=== PATIENT | male | born 1955 | race Caucasian/White ===

== ENCOUNTER 2019-01-28 08:59 | Outpatient (RCR) | payer OTHER, SELFPAY | END 2019-02-05 23:59 | LOC: NS 08:59 | PROVIDERS: Family Provider Family Medicine; PCP Family Medicine; Visit Provider Family Medicine | DX: E66.9 Obesity, unspecified (principal); Z71.3 Dietary counseling and surveillance | CPT/HCPCS: 97802 ==

== ENCOUNTER 2019-02-25 08:30 | Outpatient (RCR) | payer OTHER, SELFPAY ==
[2017-03-08 15:40] VITALS: BMI 33.0
== END 2019-03-08 23:59 ==
LOC: NS 08:30
PROVIDERS: Family Provider Family Medicine; PCP Family Medicine; Visit Provider Family Medicine
DX: E66.9 Obesity, unspecified (principal); Z71.3 Dietary counseling and surveillance
CPT/HCPCS: 97803

== ENCOUNTER 2019-04-01 08:30 | Outpatient (RCR) | payer OTHER, SELFPAY ==
[2017-03-08 15:40] VITALS: BMI 33.0
== END 2019-04-07 23:59 ==
LOC: NS 08:30
PROVIDERS: Family Provider Family Medicine; PCP Family Medicine; Visit Provider Family Medicine
DX: E66.9 Obesity, unspecified (principal); Z71.3 Dietary counseling and surveillance
CPT/HCPCS: 97803

== ENCOUNTER 2019-04-28 08:30 | Outpatient (RCR) | payer OTHER, SELFPAY ==
[2017-03-08 15:40] VITALS: BMI 33.0
== END 2019-05-08 23:59 ==
LOC: NS 08:30
PROVIDERS: Family Provider Family Medicine; PCP Family Medicine; Visit Provider Family Medicine
DX: E66.9 Obesity, unspecified (principal); Z71.3 Dietary counseling and surveillance
CPT/HCPCS: 97803

== ENCOUNTER 2019-06-03 08:30 | Outpatient (RCR) | payer OTHER, SELFPAY ==
[2017-03-08 15:40] VITALS: BMI 33.0
== END 2019-06-07 23:59 ==
LOC: NS 08:30
PROVIDERS: Family Provider Family Medicine; PCP Family Medicine; Visit Provider Family Medicine
DX: Z71.3 Dietary counseling and surveillance (principal); E66.9 Obesity, unspecified
CPT/HCPCS: 97803

== ENCOUNTER 2019-07-07 08:20 | Outpatient (RCR) | payer OTHER, SELFPAY ==
[2017-03-08 15:40] VITALS: BMI 33.0
== END 2019-07-08 23:59 ==
LOC: NS 08:20
PROVIDERS: Family Provider Family Medicine; PCP Family Medicine; Visit Provider Family Medicine
DX: Z71.3 Dietary counseling and surveillance (principal); E66.9 Obesity, unspecified
CPT/HCPCS: 97803

== ENCOUNTER 2019-07-21 08:54 | Outpatient (RCR) | payer OTHER, SELFPAY ==
[2017-03-08 15:40] VITALS: BMI 33.0
== END 2019-07-21 17:26 | disposition home or self-care (01) ==
LOC: NS 08:54
PROVIDERS: Family Provider Family Medicine; PCP Family Medicine; Visit Provider Family Medicine
DX: Z71.3 Dietary counseling and surveillance (principal); E66.9 Obesity, unspecified
CPT/HCPCS: 97803

== ENCOUNTER 2021-02-20 12:29 | Emergency (ER) | payer MEDICARE, OTHER, SELFPAY ==
[2021-02-20 12:30] VITALS: BP 135/68; PULSE 56; RESP 16; TEMP 36.6; O2SAT 99; BMI 29.9
[2021-02-20] MEDS: HYDROcodone Bitartrate/Apap 5/325 Tablet PO (13:02)
--- NOTE | 2021-02-20 13:10 | RAD_ITS ---
STUDY: X-RAY - RIGHT KNEE REASON FOR EXAM: Male, 65 years old. pain TECHNIQUE: 3 view(s) of the knee. COMPARISON: None. FINDINGS: Normal visualized distal femur. Normal visualized proximal tibia and fibula. Normal proximal tibiofibular articulation. There is mild degenerative arthrosis of the medial femorotibial compartment. Normal lateral femorotibial compartment. There is mild degenerative arthrosis of the patellofemoral articulation. 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 The soft tissue structures are unremarkable. RAD/Knee 3 Views IMPRESSION: 1. No acute fracture or dislocation. 2. CPPD with mild arthrosis. Electronically Signed: Christoph Ellsworth MD at 13:30 EDT Tel , Service support ,
--- NOTE | 2021-02-20 14:31 | ED.VIS.LOWEX ---
HPI History of Present Illness HPI Narrative: Patient is a 65-year-old male who states about 1 week ago he was walking when he felt and heard a pop in his right knee. He states it felt better after 2 or 3 days. He reports he was mowing the yard yesterday and does not remember a specific trauma but reports after the event has noticed pain in his right knee. Secondary to this he presents for evaluation. He denies any recent travel surgery or history of DVT/PE. Chief Complaint: Lower Extremity Injury PFSH PFSH Home Medications omeprazole magnesium [Prilosec Otc] 20 mg PO PRN PRN 03/07/17 [History Last Taken 03/06/17] simvastatin [Zocor] 40 mg PO QHS 03/07/17 [History Last Taken 03/06/17] cinacalcet 30 mg PO DAILY 02/20/21 [History Last Taken Unknown] hydrocodone-acetaminophen 1 tab PO Q6H PRN 3 Days #12 tab 02/20/21 [Rx Last Taken Unknown] irbesartan 75 mg PO DAILY 02/20/21 [History Last Taken Unknown] prednisone 40 mg PO DAILY 5 Days #10 tab 02/20/21 [Rx Last Taken Unknown] Allergy/AdvReac Type Severity Reaction Status Date / Time No Known Allergies Allergy Verified 02/20/21 12:30 Social History Smoking Status: Former smoker ROS ROS ED Constitutional Constitutional ED: Denies chills or fever(s) ENT ENT ED: Denies sore throat Cardiovascular Cardiovascular: Denies chest pain Respiratory/Chest Respiratory/Chest: Denies cough Gastrointestinal Gastrointestinal: Denies nausea or vomiting Musculoskeletal Musculoskeletal: Reports other Details: Positive right knee pain Integumentary Denies Abrasions Neurologic Neurologic: Denies headache(s) or weakness Hematologic/Lymphatic Hematologic/Lymphatic: Denies easy bleeding or easy bruising EXAM Physical Exam Const Vital Signs: 02/20/21 12:30 Temperature 97.8 F Temperature Source Temporal Pulse Rate 56 L Respiratory Rate 16 Blood Pressure 135/68 H Blood Pressure Mean 90 Pulse Ox 99 Oxygen Delivery Method Room Air Positive well nourished and well developed General Appearance ED: well developed HEENT normocephalic and atraumatic Eyes PERRL Neck full ROM Chest Wall inspection of chest normal Resp normal respiratory effort and clear to auscultation bilaterally Cardio regular rate, regular rhythm and no murmurs Extremity Extremity Narrative: Right lower extremity is neurovascularly intact. Patient has mild soft tissue swelling along the medial aspect of the right knee. There is pain on palpation at the site. Patellar tendon is intact knee ligaments are stable. No asymmetric edema no pitting edema negative Homans' sign bilaterally Neuro oriented x3 and CN's II-XII intact bilaterally Sensorium / Orientation: alert and oriented to person Psych mental status grossly normal Skin no wounds Lesions: no lesions Rashes: no rashes MDM MDM MDM Narrative Medical decision making narrative: Patient presented to the ER with right knee pain. On exam there is mild soft tissue swelling and as he reported a pop before the initial onset of pain I did elect to perform x-rays. X-rays revealed degeneration consistent with arthritis but otherwise no acute finding. As patient does not have any ligamentous instability or signs of infection or DVT I do not feel there is need for further work-up and his history and exam is most consistent with knee sprain and arthritis and therefore he'll be discharged home with symptomatic medication. Radiography Diagnostic Testing: Radiology Impression Knee X-Ray 02/20/21 13:10 IMPRESSION: 1. No acute fracture or dislocation. 2. CPPD with mild arthrosis. Electronically Signed: Christoph Ellsworth MD at 13:30 EDT Tel , Service support , Discharge Plan Triage Chief Complaint: Lower Extremity Injury ED Provider: Eliseo Chu Dx/Rx/DC Orders Clinical Impression: Right knee sprain, Osteoarthritis Instructions: Arthritis: Exercise, ED Knee Sprain Prescriptions: New prednisone 20 mg tablet 40 mg PO DAILY 5 Days Qty: 10 RF: 0 hydrocodone-acetaminophen 5-325 mg tablet 1 tab PO Q6H PRN (Reason: pain) 3 Days Qty: 12 RF: 0 No Action simvastatin [Zocor] 40 MG tablet 40 mg PO QHS RF: 0 omeprazole magnesium [Prilosec OTC] 20 MG tablet,delayed release (DR/EC) 20 mg PO PRN PRN (Reason: Indigestion) RF: 0 cinacalcet 30 mg tablet 30 mg PO DAILY RF: 0 irbesartan 75 mg tablet 75 mg PO DAILY RF: 0 Primary Care Provider: Miko Velez Referrals: Miko Velez DO [Primary Care Provider] - Disposition Disposition: Home, Self Care
[2021-02-20 14:48] VITALS: BP 115/75; RESP 16
== END 2021-02-20 14:49 | disposition home or self-care (01) ==
PROVIDERS: Emergency Provider Emergency Medicine; PCP Family Medicine
DX: M17.11 Unilateral primary osteoarthritis, right knee (principal); S83.91XA Sprain of unspecified site of right knee, initial encounter; Z87.891 Personal history of nicotine dependence; Y93.01 Activity, walking, marching and hiking; Y93.89 Activity, other specified; Y92.007 Garden or yard of unspecified non-institutional (private) residence as the place of occurrence of the external cause; Y99.8 Other external cause status
CPT/HCPCS: 73562; 99283

== ENCOUNTER 2022-03-09 03:59 | Emergency (ER) | payer MEDICARE, OTHER, SELFPAY ==
[2022-03-09 04:02] VITALS: BP 156/74; PULSE 55; RESP 18; TEMP 36.4; O2SAT 97; BMI 35.1
--- NOTE | 2022-03-09 04:03 | EX.ED.UPPERE ---
HPI History of Present Illness Chief Complaint: Upper Extremity Injury Narrative Narrative: 66-year-old male here for extremity injury. History of GERD, hyperlipidemia. The patient s feels he notes for the past 4 days he has had bruising in the left upper extremity with mild pain. Denies any recent trauma but does note he was moving some objects over the past weekend which could have precipitated him hurting his left bicep. Denies any history of DVT. Patient denies active cancer, being bedridden for greater than 3 days, denies unilateral leg swelling, denies any varicose veins, denies any calf tenderness, denies any edema. Denies major surgery within 12 weeks, recent paralysis, previous DVT. No fevers or chills. No numbness or tingling. Old chart reviewed: No recent advanced imaging of the involved extremity [facility] Medical History (Updated 03/09/22 @ 04:[address] Mario Alberto Gore, DO) History of lung cancer Hypertension Home Medications omeprazole magnesium 20 mg tablet,delayed release (Prilosec OTC) 20 mg PO PRN PRN Indigestion 03/07/17 [History Last Taken 03/06/17] simvastatin 40 mg tablet (Zocor) 40 mg PO QHS 03/07/17 [History Last Taken 03/06/17] cinacalcet 30 mg tablet 30 mg PO DAILY 02/20/21 [History Last Taken Unknown] irbesartan 75 mg tablet 75 mg PO DAILY 02/20/21 [History Last Taken Unknown] Allergy/AdvReac Type Severity Reaction Status Date / Time lactase Allergy Vomiting Verified 03/09/22 04:00 Social History Smoking Status: Former smoker ROS [facility] ED Constitutional Constitutional ED: Denies chills or fever(s) Eyes Eyes: Denies other visual disturbances ENT ENT ED: Denies ear pain Cardiovascular Cardiovascular: Denies chest pain Respiratory/Chest Respiratory/Chest: Denies dyspnea Gastrointestinal Gastrointestinal: Denies abdominal pain Genitourinary Genitourinary ED: Denies dysuria Musculoskeletal Musculoskeletal: Reports myalgias Integumentary Reports other Details: Bruising noted over the left upper extremity Neurologic Neurologic: Denies dizziness, focal weakness, numbness, syncope or weakness Psychiatric Psychiatric: Denies homicidal ideation or suicidal ideation EXAM Physical Exam Narrative Exam Narrative: Nursing triage notes reviewed, Vital signs reviewed Constitutional: please see mdm Neck: No stridor, no JVD, full neck ROM Lungs: Clear to auscultation, No wheezing or rales. No increased work of breathing, no conversational dyspnea, no accessory muscle use, no nasal flaring. No respiratory distress noted Heart: Regular rate and rhythm, No murmurs, No rubs and No gallops, 2+ distal pulses (radial, femoral, posterior tibial) in all extremities Extremities: No edema, no tenderness over the biceps venous structures. Intact rotator cuff complex, 5/5 strength in left upper extremity elbow flexion, extension. Wrist pronation supination. Neuro: Intact 5/5 strength with ok sign (median), intact finger abduction (ulnar) intact wrist extension (radial n). Intact sensation in the radial, ulnar, and median nerve distributions. Skin: Ecchymosis noted over the left upper arm tracking into the medial proximal forearm. No signs of cellulitic changes, no crepitus, fluctuance, induration noted. No obvious skin abrasions lacerations or other trauma noted. MDM MDM MDM Narrative Medical decision making narrative: 66-year-old male here with atraumatic left upper arm discoloration and slight pain. He was hemodynamically stable, afebrile, nontoxic-appearing. He had no DVT risk factors. Low suspicion for DVT at this time. Patient had symmetric pulses in all upper extremities. Likely ecchymosis from muscle strain or other musculoskeletal cause. Low suspicion for life or limb threatening etiology at this time. Gave strict return precautions and follow-up instructions. Shared decision making: I had a long discussion with the patient and or visitors regarding risk/benefits of further testing or admission. They decided to forego any further testing or admission. They are aware of of the risk/benefits inherent in this decision and have voiced understanding. Discharge Plan Triage Chief Complaint: Upper Extremity Injury ED Provider: Mario Alberto Gore Dx/Rx/DC Orders Clinical Impression: Abnormal bruising Prescriptions: No Action simvastatin [Zocor] 40 MG tablet 40 mg PO QHS Label Comments: cholesterol omeprazole magnesium [Prilosec OTC] 20 MG tablet,delayed release (DR/EC) 20 mg PO PRN PRN (Reason: Indigestion) Label Comments: acid reflux cinacalcet 30 mg tablet 30 mg PO DAILY Label Comments: TAKE 1 TABLET BY MOUTH DAILY irbesartan 75 mg tablet 75 mg PO DAILY Label Comments: TAKE 1 TABLET BY MOUTH ONCE DAILY Primary Care Provider: Miko Velez Referrals: Miko Velez DO [Primary Care Provider] - Activity Restrictions/Additional Instructions: Please continue to monitor your skin discoloration at home. If your discoloration worsens, develop increasing pain, increasing swelling of left upper extremity, chest pain or shortness of breath please return to emergency department immediately. Please follow-up with your primary care physician within the next week for re-evaluation. Disposition Disposition: Home, Self Care
== END 2022-03-09 04:41 | disposition home or self-care (01) ==
PROVIDERS: Emergency Provider Emergency Medicine; PCP Family Medicine; Visit Provider Emergency Medicine
DX: M79.622 Pain in left upper arm (principal); I10 Essential (primary) hypertension; E78.5 Hyperlipidemia, unspecified; Z79.899 Other long term (current) drug therapy; Z87.891 Personal history of nicotine dependence
CPT/HCPCS: 99282

== ENCOUNTER → 2022-11-08 | Outpatient (CLI) | payer MEDICARE, OTHER, SELFPAY ==
--- NOTE | 2022-11-08 06:52 | CT_ITS ---
STUDY: CT MAXILLOFACIAL SINUSES REASON FOR EXAM: Male, 66 years old. CHRONIC SINUSITIS WITH POLYPOSIS RADIATION DOSAGE (If Supplied By Facility): CTDIvol = ( 33.06 ) mGy, DLP = ( 813.19 ) mGycm TECHNIQUE: The patient was scanned in a multi detector CT scanner. High resolution axial imaging was performed without the administration of intravenous contrast material. Sagittal and coronal images were reconstructed. Individualized dose optimization techniques were used for this CT. COMPARISON: None. FINDINGS: FRONTAL SINUSES: Opacification of the frontal sinuses worse on the right side. ETHMOIDAL SINUSES: Opacification of the ethmoid sinuses with thinning of the bony septations. MAXILLARY SINUSES: Mucosal thickening about the maxillary sinuses bilaterally. SPHENOIDAL SINUSES: Opacification of the sphenoid sinuses. Compromise of the ostiomeatal complexes of the maxillary sinuses bilaterally worse on the right side due to mucosal hypertrophy. Normal bilateral middle turbinates. Normal bilateral inferior turbinates. Normal midline nasal septum. Soft tissue densities in the nasal airways are prominent on the right side suggestive of polyposis. The visualized osseous structures are normal. The visualized bilateral orbital contents are normal. CT/Sinus/Facial Bone IMPRESSION: Pansinusitis. Nasal polyposis is worse in the right nasal airway. Electronically Signed: Kam Hyman MD at 15:10 EDT ,
== END | disposition home or self-care (01) ==
LOC: CT 06:49
PROVIDERS: PCP Family Medicine; Referring Provider Otolaryngology; Visit Provider Otolaryngology
DX: J32.9 Chronic sinusitis, unspecified (principal)
CPT/HCPCS: 70486

== ENCOUNTER 2023-04-23 08:37 | Day surgery (SDC) | payer MEDICARE, OTHER, SELFPAY ==
--- NOTE | 2023-04-18 09:15 | EKG12_ITS ---
Test Reason : PREOP Blood Pressure : / mmHG Vent. Rate : 072 BPM Atrial Rate : 072 BPM P-R Int : 152 ms QRS Dur : 088 ms QT Int : 368 ms P-R-T Axes : 017 -53 052 degrees QTc Int : 402 ms Normal sinus rhythm Left anterior fascicular block Abnormal ECG Confirmed by GREGORIO PALM, EMELYN ([id number]), online content editor SIRENA VENTURA ([id number]) on 04/19/2023 6:44:31 AM Referred By: Mansoor Walton Confirmed By:EMELYN PERKINS MD
[2023-04-18 09:40] LABS: Hematocrit 47.9 % (40-54); Hemoglobin 14.8 g/dL (13.0-16.5); Mean Corp Hgb Conc 30.9 g/dL (32-36); Mean Corpuscular Hgb 27.7 pg (27.0-32.0); Mean Corpuscular Volume 89.7 fL (80-94); Mean Platelet Vol. 8.7 fl (6.2-12.0); Platelet Count 242 K/mm3 (150-450); RBC Distribution Width SD 42.6 fl (35.1-43.9); Red Blood Count 5.34 M/mm3 (4.6-6.2); White Blood Count 8.2 K/mm3 (4.4-11.0)
[2023-04-18 10:02] LABS: Anion Gap 3 (5-15); BUN 18 mg/dL (7-18); BUN/Creat Ratio 13.2 RATIO (10-20); Chloride 107 mmol/L (98-107); Creatinine, Serum 1.36 mg/dL (0.70-1.30); EST Glomerular Filtration Rate 55 mL/min (>60); Est Glom Filt Rate - Afr Amer 67 mL/min (>60); Glucose 102 mg/dL (74-106); Sodium Level 139 mmol/L (136-145)
[2023-04-23] VITALS (7 sets, daily range): BP systolic 134–163; BP diastolic 73–93; PULSE 55–75; RESP 16–18; TEMP 36.6–37; O2SAT 92–98; BMI 36.6
--- NOTE | 2023-04-23 | ETH_PTH ---
PATIENT: DEBORAH MENDOZA LOC: [facility] [place] U#:[id number] AGE/SX: 67/M ROOM: RE04/23/[address]: Dr. Mansoor Walton MD : 1955 BED: DIS: 04/23/2023 SPEC #: [id number] RECD: 04/23/23 12:50 STATUS: HOLLY TIAN #: [id number] JONATHAN: 04/23/23 00:[address]: Mansoor Walton DEPT: SURGICAL PATHOLOGY RECD BY: Jermaine Armstrong ENTERED: 04/23/23 13:23 SP TYPE: ETH TISS OTHR DR: Dr. Miko Velez DO Tissues: A - Ethmoid sinus, NOS B - Ethmoid sinus, NOS C - Nasal septum, NOS Procedures: Decalcification bone/plaque Surgery Specimen Level III Surgery Specimen Level IV HEADER OPERATION: Septoplasty, functional endoscopic surgery with Navigation PRE-OP DIAGNOSIS: Anosmia, polyp of nasal cavity, chronic sinusitis, deviated nasal septum TISSUE SUBMITTED: A - Left sinus contents, B - Right sinus contents, C - Nasal septum MICROSCOPIC DIAGNOSIS A. Left sinus contents: Fragments of respiratory mucosa with chronic inflammation and bone. B. Right sinus contents: Fragments of respiratory mucosa with chronic inflammation and bone. C. Nasal septum: Fragments of bone and cartilage, clinically deviated nasal septum. AM:kimberly 04/26/2023 MICROSCOPIC DESCRIPTION Slides are reviewed. GROSS DESCRIPTION A - Received in fixative is one container labeled with the patient's name and designated left sinus contents. The specimen consists of multiple irregular fragments of hemorrhagic soft tissue mixed with possible fragments of bone that in aggregate measure 4.0 x 3.0 x 0.3 cm. The entire specimen is submitted in two cassettes after decalcification. B - Received in fixative is one container labeled with the patient's name and designated right sinus contents. The specimen consists of multiple irregular fragments of pink soft tissue mixed with possible fragments of bone that in aggregate measure 5.0 x 3.0 x 0.3 cm. The entire specimen is submitted in two cassettes after decalcification. C - Received in fixative is one container labeled with the patient's name and designated nasal septum. The specimen consists of multiple irregular fragments of cartilage and bone that in aggregate measure 5.0 x 3.0 x 0.3 cm. The entire specimen is submitted in two cassettes after decalcification. / ROSIE:kimberly 04/23/2023 TC:3 CPT: 72809 x2, 95081, 76877 x3
[2023-04-23] MEDS: Lactated Ringers 1,000 ML 15 ML IV (09:02)
[2023-04-23] MEDS: Oxymetazoline 0.05% 1 SPRAY SPRAY.BTL NASAL (09:08)
--- NOTE | 2023-04-23 10:08 | PCM.DC.SUM ---
Providers Primary Care Physician: Dr. Miko Velez DO Reason For Visit: Septoplasty, Functional Endoscopic Medications at Discharge Home Medications omeprazole magnesium 20 mg tablet,delayed release (Prilosec OTC) 20 mg PO PRN PRN Indigestion 03/07/17 simvastatin 40 mg tablet (Zocor) 40 mg PO QHS 03/07/17 cinacalcet 30 mg tablet 30 mg PO DAILY 02/20/21 irbesartan 75 mg tablet 75 mg PO DAILY 02/20/21 cholecalciferol (vitamin D3) 25 mcg (1,000 unit) capsule (Vitamin D3) 25 mcg PO DAILY 04/12/23 tamsulosin 0.4 mg capsule 0.4 mg PO DAILY 04/12/23 Weight / BMI Weight Weight: 99.7 kg Body Mass Index (BMI) 36.6 ABG / Lab / Microbiology Data 04/18/23 09:29 04/18/23 09:29 D/C Instructions Discharge Diet: No restrictions Additional Activity Instructions: NO nose blowing Additional Instructions: Start saline irrigation tomorrow. Irrigate 4x/day Please Follow Up With: Mansoor Walton MD When: next week Meaningful Use Info Meaningful Use Diagnoses (Choose all that apply): None applicable Discharge Plan Admission Attending Provider: Mansoor Walton Primary Care Provider: Miko Velez Discharge Orders/Prescriptions Prescriptions: No Action simvastatin [Zocor] 40 MG tablet 40 mg PO QHS Patient Comments: cholesterol omeprazole magnesium [Prilosec OTC] 20 MG tablet,delayed release (DR/EC) 20 mg PO PRN PRN (Reason: Indigestion) Patient Comments: acid reflux cinacalcet 30 mg tablet 30 mg PO DAILY Patient Comments: TAKE 1 TABLET BY MOUTH DAILY irbesartan 75 mg tablet 75 mg PO DAILY Patient Comments: TAKE 1 TABLET BY MOUTH ONCE DAILY tamsulosin 0.4 mg capsule 0.4 mg PO DAILY cholecalciferol (vitamin D3) [Vitamin D3] 25 mcg (1,000 unit) capsule 25 mcg PO DAILY Referrals / Follow Up: Miko Velez DO [Primary Care Provider] - Disposition Disposition (needs filled in before D/C Order can be placed): Home, Self Care
[2023-04-23] MEDS: Oxymetazoline 0.05% 1 SPRAY SPRAY.BTL 15 SPRAY (10:23)
[2023-04-23] MEDS: Lidocaine 2% /Epi 1:100 (20ml) 20 ML VIAL (10:23)
[2023-04-23] MEDS: Mupirocin Ointment 22gm Tube 1 APPLIC (10:56)
--- NOTE | 2023-04-23 11:54 | PCM.OPRPT ---
Report of Operation Date of Procedure: 04/23/23 Pre-Operative Diagnosis: pansinusitis deviated septum Post-Operative Diagnosis: same Surgery/Procedure Performed:: Bilateral total ethmoidectomy right sphenoidotomy bilateral maxillary antrostomy septoplasty use of navigation Surgeon: Mansoor aWlton Type of Anesthesia: General Anesthesiologist: Adam Aguirre Estimated Blood Loss (mL): 50 cc Description of Procedure: The patient was taken to the operating room on 04/23/2023. The patient was placed in the supine position on the operating table. The patient was given sufficient general endotracheal anesthesia. The head of bed was elevated 30 degrees. The navigation system was placed and verified per protocol and found to be accurate. 0 and 30 degrees rigid nasal endoscopes were used throughout the entire case. The middle turbinate, uncinate process and polyps were injected with 2% lidocaine with epinephrine bilaterally. The septum and columella were also injected with the same local solution. The left middle turbinate was medialized with a Chesterhill elevator. Polyp was removed from the middle meatus using a sinus shaver. A ball-tipped sinus seeker was placed into the patient's maxillary sinus. The maxillary antrostomy was created with a backbiter. The uncinate process was taken down using a microdebrider. Next, the ethmoid bulla was opened with a small curette. Anterior and posterior ethmoidectomy were then carried out using curette, sinus shaver and 45 degree Blakesley David forceps. Ethmoid cells were verified for relation to the skull base and orbit prior to being entered with the navigation system. I then placed Afrin pledgets into the sinonasal cavity. Nasal hair was trimmed with the scissors and removed. A right hemitransfixion incision was made with a 15 blade. The mucoperichondrium was elevated off of the left-hand side of the septum with a Chesterhill elevator. An anterior and posterior tunnel were created in this fashion. The bony cartilaginous junction was with a Chesterhill elevator. A posterior tunnel was created on the right side developed by elevating the mucoperichondrial with a Chesterhill. The deviated portions of bony septum removed using open Pepe forceps. The maxillary crest was removed with a hammer and chisel. Afrin was used for hemostasis as well as Sherman powder. The hemitransfixion incision was closed with 4-0 chromic. Next attention was turned to the left side. The middle turbinate was medialized with a [place]hill elevator. A large polyp was removed from the middle meatus using a sinus shaver. The uncinate process was taken down using a sinus shaver. In doing so, the maxillary antrostomy was created. It was enlarged with a back biter and Americo cut forceps. The ethmoid bulla was opened with a small curette. Anterior posterior ethmoidectomy were then carried out using a sinus shaver curette and Blakesley David forceps. Ethmoid cells were verified for relation to the skull base and orbit prior to being entered with the navigation system. There was a polyp occluding the natural sphenoid ostia. This was removed with a sinus shaver. The sphenoid was then opened on the left side using a sinus shaver and confirmed with navigation. Hemostasis was then achieved using Afrin pledgets. The pledgets were then removed bilaterally and Sherman powder was applied bilaterally for absolute hemostasis. Calvert nasal splints were applied to each side of the septum and sewn through and through with 3-0 silk. The procedure was then terminated. The patient was then awoken and brought to the recovery room in stable condition blood loss 50 cc, replacement none. Sponge, needle, instrument count were correct at the end of the procedure.
== END 2023-04-23 14:03 | disposition home or self-care (01) ==
LOC: SDC 08:37 → AC 08:38
PROVIDERS: Anesthesiology; PCP Family Medicine; Referring Provider Otolaryngology; Visit Provider Otolaryngology
PROC: (CPT 30520; principal; 2023-04-23 09:45)
DX: J34.2 Deviated nasal septum (principal); J43.9 Emphysema, unspecified; J32.4 Chronic pansinusitis; R43.0 Anosmia; J33.0 Polyp of nasal cavity; Z87.891 Personal history of nicotine dependence; Z79.899 Other long term (current) drug therapy; I10 Essential (primary) hypertension; E07.9 Disorder of thyroid, unspecified
CPT/HCPCS: 30520; 31255; 00160; 31267; 36415; 80048; 85027; 88304; 88305; 88311; 93005; J7120; J2405

== ENCOUNTER → 2023-06-08 | Outpatient (CLI) | payer MEDICARE, OTHER, SELFPAY ==
--- NOTE | 2023-06-08 06:41 | CT_ITS ---
EXAM: CT CHEST WITHOUT INTRAVENOUS CONTRAST CLINICAL INDICATION: NSCLC SURVEILLANCE TECHNIQUE: Helically acquired images were obtained of the chest without intravenous contrast. This CT exam was performed using one or more of the following dose reduction techniques: automated exposure control, adjustment of the mA and/or kV according to patient size, and/or use of iterative reconstruction technique. RADIATION DOSE: CTDIvol = 19.12 mGy, DLP = 687.89 mGy-cm COMPARISON: 02/03/2015. FINDINGS: LUNGS AND PLEURAL SPACES: Paraseptal emphysematous changes in the upper lobes. No mass. No pleural effusion or thickening. No pneumothorax. HEART: Coronary artery calcifications. Heart size is normal. No pericardial effusion. MEDIASTINUM: Unremarkable. No mediastinal or hilar adenopathy. Esophagus is unremarkable. No hiatal hernia. THYROID: Unremarkable. No thyroid lesions. BONES/JOINTS: Unremarkable. No suspicious lytic or blastic abnormality. VASCULATURE: See above. GALLBLADDER AND BILE DUCTS: Cholecystectomy. CT/Chest without Contrast IMPRESSION: 1. Paraseptal emphysematous changes in the upper lobes. 2. No pulmonary masses. 3. Cholecystectomy. 4. Coronary artery disease. Electronically Signed: Allan Valles MD at 7:26 EST ,
== END | disposition home or self-care (01) ==
LOC: CT 06:41
PROVIDERS: PCP Family Medicine
DX: Z85.118 Personal history of other malignant neoplasm of bronchus and lung (principal)
CPT/HCPCS: 71250

== ENCOUNTER → 2024-06-09 | Outpatient (CLI) | payer MEDICARE, OTHER, SELFPAY ==
--- NOTE | 2024-06-09 08:20 | CT_ITS ---
STUDY: CT CHEST WITHOUT CONTRAST REASON FOR EXAM: Male, 68 years old. NON SMALL CELL LUNG CA, LEFT UPPER LOBE REMOVED RADIATION DOSAGE (If Supplied By Facility): CTDIvol = ( 19.66 ) mGy, DLP = ( 682.89 ) mGycm TECHNIQUE: Transaxial imaging was performed without the administration of intravenous contrast material. Multiplanar coronal and sagittal images were reformatted. Individualized dose optimization techniques were used for this CT. COMPARISON: Comparison is made with prior study dated June 08, 2023. FINDINGS: CHEST Once again, the patient is status post left upper lobectomy. Stable increased markings at the right lung apex suggestive of breath scarring. Mild linear scarring at the lung bases. There is no demonstrated pleural abnormality. There are calcifications of the coronary arteries. There are small lymph nodes within the mediastinum, which are normal in size and morphology most compatible with reactive lymph hyperplasia. Calcified bilateral hilar lymph nodes. Normal unenhanced pulmonary arteries. There is atherosclerotic calcification of the aortic arch and descending thoracic aorta. There are degenerative changes of the thoracic spine. Status post cholecystectomy. Calcified splenic granulomas. CT/Chest without Contrast IMPRESSION: Status post left upper lobectomy. Stable examination. Electronically Signed: Kam Hyman MD at 10:22 EST ,
== END | disposition home or self-care (01) ==
PROVIDERS: PCP Family Medicine
DX: C34.92 Malignant neoplasm of unspecified part of left bronchus or lung (principal)
CPT/HCPCS: 71250